=== PATIENT | male | born 1990 | race Caucasian/White ===

== ENCOUNTER 2021-05-12 10:50 | Emergency (ER) | payer SELFPAY ==
[~2021-05-12] VITALS: Ht 165.1 cm; Wt 79.0 kg
[2021-05-12] MEDS ORDERED: KETOROLAC 60MG/2ML VIAL IM ONE (11:15)
[2021-05-12] MEDS ORDERED: IBUP-2029 MT (12:45)
[2021-05-12 13:04] VITALS: BP 116/75
== END 2021-05-12 13:12 | disposition home or self-care (01) ==
LOC: ER 10:50
DX: M79.642 Pain in left hand (principal); Z88.8 Allergy status to other drugs, medicaments and biological substances
CPT/HCPCS: 73130; 96372; 99283; J1885